=== PATIENT | male | born 1940 | race Caucasian/White ===

== ENCOUNTER 2021-08-06 06:29 | Day surgery (SDC) | payer MEDICARE ==
[2021-08-04 14:40] VITALS: BP 140/77
[2021-08-04 14:56] LABS: BASOPHILS % (AUTO) 0.8 % (0.0-5.0); EOSINOPHILS % (AUTO) 2.4 % (0.0-8.0); HEMATOCRIT 41.8 % (42-54); MEAN CORPUSCULAR VOLUME 90.9 fL (79-99); MONOCYTES % (AUTO) 7.8 % (3.0-13.0); NEUTROPHILS % (AUTO) 79.1 % (40.0-77.0); PLATELET COUNT (AUTO) 153 K/uL (130-400); RED CELL DISTRIBUTION WIDTH 14.9 % (11.0-15.5); WHITE BLOOD COUNT (AUTO) 7.7 K/uL (4.8-10.8)
[2021-08-04 15:16] LABS: INR 1.01 (0.85-1.15)
[2021-08-04 15:18] LABS: PARTIAL THROMBOPLASTIN TIME 27.2 SEC (26.3-35.5)
[2021-08-04 15:19] LABS: CREATININE 2.5 mg/dL (0.5-1.5)
[2021-08-06] VITALS (18 sets, daily range): BP systolic 98–126; BP diastolic 47–77
[~2021-08-06] VITALS: Ht 180.3 cm; Wt 131.5 kg
[2021-08-06] MEDS ORDERED: 0.9%NACL 1000ML 1,000 ML IV ONE (07:56)
[2021-08-06] MEDS: LEVOFLOXACIN 500 MG/D5W 100 ML 100 ML IV SCH ×2 (08:17→10:28)
[2021-08-06] MEDS ORDERED: FINA5TAB41 PO (08:23)
[2021-08-06] MEDS ORDERED: INSU100C6 SQ (08:23)
[2021-08-06] MEDS ORDERED: TORS20TA4 PO (08:23)
[2021-08-06] MEDS ORDERED: ATEN25TA PO (08:23)
[2021-08-06] MEDS ORDERED: DULA1.5P SQ (08:23)
[2021-08-06] MEDS ORDERED: APIX5TAB PO (08:23)
[2021-08-06] MEDS ORDERED: ATOR20TA65 PO (08:23)
[2021-08-06] MEDS ORDERED: TAMS-1 PO (08:23)
[2021-08-06] MEDS ORDERED: DULO30CA52 PO (08:23)
[2021-08-06] MEDS ORDERED: LIDOCAINE PF 100MG/5ML (2%) SYRINGE 5ML ONE (09:57)
[2021-08-06] MEDS ORDERED: PROPOFOL 10 MG/ML 20ML VIAL IV ONE (09:58)
[2021-08-06] MEDS ORDERED: FENTANYL CITRATE PF 50 MCG/1 ML 2ML VIAL ONE ×2 (09:58→11:22)
[2021-08-06] MEDS ORDERED: ROCURONIUM 10MG/1ML SYR 10 MG/ML ML ONE (10:09)
[2021-08-06] MEDS ORDERED: OPIUM/BELLADONNA ALKALOIDS 1 EACH SUPP.RECT RC ONE (11:13)
[2021-08-06] MEDS ORDERED: GLYCOPYRROLATE 1 MG/5 ML SYRINGE ONE (11:23)
[2021-08-06] MEDS ORDERED: NEOSTIGMINE 5MG/5ML SYR IV ONE (11:23)
[2021-08-06] MEDS ORDERED: MEPERIDINE-PF 25 MG/ML SYG ONE (12:14)
[2021-08-06] MEDS ORDERED: PHENAZOPYRIDINE HCL 200 MG TABLET ONE (13:32)
== END 2021-08-06 15:05 | disposition home or self-care (01) ==
LOC: DAH 06:29
PROVIDERS: ATTEND Urology
DX: N21.0 Calculus in bladder (principal); N40.1 Benign prostatic hyperplasia with lower urinary tract symptoms; E11.22 Type 2 diabetes mellitus with diabetic chronic kidney disease; N18.9 Chronic kidney disease, unspecified; Z84.0 Family history of diseases of the skin and subcutaneous tissue; N39.0 Urinary tract infection, site not specified; J44.9 Chronic obstructive pulmonary disease, unspecified; G47.30 Sleep apnea, unspecified; Z99.89 Dependence on other enabling machines and devices; I25.10 Atherosclerotic heart disease of native coronary artery without angina pectoris; I25.2 Old myocardial infarction; I48.91 Unspecified atrial fibrillation; Z68.41 Body mass index [BMI] 40.0-44.9, adult; Z88.0 Allergy status to penicillin; Z88.1 Allergy status to other antibiotic agents; Z88.8 Allergy status to other drugs, medicaments and biological substances; Z20.822 Contact with and (suspected) exposure to COVID-19; Z79.899 Other long term (current) drug therapy
CPT/HCPCS: 36415 ×2; 52318; 52648; 80048; 82360; 82948 ×3; 85025; 85610; 85730; 87635; 88305; 88341; 88342; A4215; A4221; A4222; A4223 ×2; A4340; A4344; A4358 ×2; A4600; A4663; A6260; C9803; J2001; J2175; J2704; J2710; J3010 ×2; J3490; J7030 ×2; J7120; J1956